=== PATIENT | male | born 1990 | race Caucasian/White ===

== ENCOUNTER 2023-09-21 18:18 | Emergency (ER) | payer SELFPAY ==
[2023-09-21 18:24] VITALS: BP 108/74
[2023-09-21 18:41] VITALS: BMI 32.0
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
[2023-09-21] MEDS: TYLENOL 1000 MG PO (19:16)
[2023-09-21] MEDS: LIDOCAINE 4% PATCH 1 PATCH TOPICAL (19:16)
[2023-09-21] MEDS: MOTRIN 800 MG PO (19:16)
[2023-09-21 21:53] VITALS: BP 129/67
[2023-09-21 21:54] VITALS: BP 129/67
== END 2023-09-21 21:55 | disposition home or self-care (01) ==
LOC: EMR 18:18
PROVIDERS: EMERGENCY PHYSICIAN Emergency Medicine
DX: M54.50 Low back pain, unspecified (principal); V43.52XA Car driver injured in collision with other type car in traffic accident, initial encounter; Y92.410 Unspecified street and highway as the place of occurrence of the external cause
CPT/HCPCS: 99284; 72131

== ENCOUNTER → 2025-02-11 16:37 | Outpatient (REF) | payer OTHER, SELFPAY | LOC: RAD 16:37 | PROVIDERS: ATTENDING PHYSICIAN Student in an Organized Health Care Education/Training Program | DX: R91.1 Solitary pulmonary nodule (principal) | CPT/HCPCS: 71270; Q9967 ==